=== PATIENT | male | born 1990 | race Caucasian/White ===

== ENCOUNTER 2020-08-05 16:37 | Outpatient (REF) | payer OTHER, SELFPAY ==
[2020-08-05 18:45] LABS: Amphetamine Screen Urine POSITIVE (Not Detect); Barbiturates, Urine Not Detected (Not Detect); Benzodiazepines Screen Urine POSITIVE (Not Detect); Cannabinoid Screen Urine POSITIVE (Not Detect); Cocaine Screen Urine Not Detected (Not Detect); Opiate Screen Urine Not Detected (Not Detect); Phencyclidine Screen Urine Not Detected (Not Detect)
== END 2020-08-05 16:38 | disposition home or self-care (01) ==
LOC: HO.LAB 16:37
PROVIDERS: Visit Provider Clinical Nurse Specialist Psychiatric/Mental Health, Adult
DX: F11.20 Opioid dependence, uncomplicated (principal)
CPT/HCPCS: 80307

== ENCOUNTER 2020-08-17 08:15 | Outpatient (RCR) | payer OTHER, SELFPAY ==
--- NOTE | 2020-07-26 11:00 | PC.NURSE ---
Patient showed up to the morning meeting at [id number] however did not show up to the first group at 0930. Called patient via telephone however patient did not answer and was unable to leave a voice mail as mail box was not set up. Called patient's emergency contact (Patient's mother) Valery and left her a voice mail message to call me back.
--- NOTE | 2020-07-26 11:52 | PC.NURSE ---
Spoke to patient's mother Valery who gave me another number to call to get in touch with her son. Stated she would call him and call me back. Yoko called me back and stated she spoke to her son who was having problems with the wireless connection and could not get into group as a result. They have been having connectivity issues d/t where they live. She stated she would work with her son and try and fix the issue and her son is planning on starting tomorrow.
--- NOTE | 2020-07-27 11:03 | PC.NURSE ---
Called pt because he attended approximately 3 minutes of the first psychotherapy group and left. Could not leave a voicemail due to voicemail not being set up yet.
--- NOTE | 2020-07-27 11:50 | PC.NURSE ---
Patients mother called this morning at 0915 after the morning meeting stating that her son told her that he was told that someone will call him before the first group. I informed patients mother that her son should have received an email for the 0930 group and he is to click on the link to get into the group and that staff would let him in the group at 0930. Patient was able to attend the morning meeting without incident. Patient called as well and asked how to get in the group. I explained to him how to get on. Staff stated that patient showed up to group, attended for about 3 minutes then left. Angela Schmidt will call the patient to f/u.
--- NOTE | 2020-07-27 13:02 | PC.NURSE ---
Spoke with pt to discuss his reaction to groups. He reported he struggles to stay in group but could not elaborate on any details as to why. He reported he wanted to try again and was forwarded to Linda Urbano to schedule a reassessment. Pt's mother called to report that pt had been experiencing paranoia from the groups. Recommended another crisis assessment if he was unable to function and running out of medication. Recommended calling his PCP for medication refills. Reminded her that he needs to be present during the follow up phone calls to other providers due to confidentiality concerns.
--- NOTE | 2020-07-29 10:27 | PC.NURSE ---
Pt attended his reassessment this morning at 10am. Pt and TW discussed pt's struggles with PHP and the need for a reassessment. Pt reported that the groups were scary to him- that he was not used to doing this type of treatment. Pt stated that after talking with the line maintenance supervisor, he understands that it is in his best interest to attend the groups. Pt was informed again of the structure of the day and informed that he can pin the clinician so that is all he can see should he become anxious looking at other group members. Completed PHQ-9. Reviewed assessment. Pt indicates no changes. Pt denies SI/HI. Denies any new substance use. Reviewed releases. Pt indicated they remain accurate. Reviewed and completed the patient contract and rules of telehealth. Pt verbally consented to both. Diagnosis verification remains the same. Reviewed safety plan- no changes. Pt was resent email with name and direct extension for his assigned clinician, the main number to the program, and the numbers for both [facility] and [facility] crisis. The coping skill handout packet was also attached. Pt requested a new packet of information be mailed to him as he cannot find the one that was sent previously.
[2020-08-01 13:57] VITALS: BMI 37.0
--- NOTE | 2020-08-01 14:13 | PC.ADMIT ---
Patient is a 30 year old male who started the PHP program today. He initally was going to start the program last week however was having some issues with wifi and also was feeling quite anxious about the program and felt he was being started at by others when he attended the morning meeting. Patient was referred by [facility] where he was admitted d/t mood instability. See Intergrated Assessement for further details.Patient is alert and oriented x4 . Calm and cooperative. Feels he is going to get alot out of the program. Denied SI, AH, VH, or HI. Stated he ran out of his medications as he had a limited supply from the hospital. Noelle Barron APRN is aware. Patient gave verbal permission to email him a copy of his safety plan and information on Substance use support groups. Patient strongly encouraged to attend online groups in addition to PHP for more support. Assessment complted via telephone d/t pandemic.
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
--- NOTE | 2020-08-04 12:00 | PC.NURSE ---
Addendum entered by Cindy Rizzo RN 08/04/20 12:25: Clarification: Per [facility] note it was initially thought that patient had a substance induced psychosis however it was determined that this was less likely. Original Note: Matt called to say that he will be completing a AGUILAR at [facility] today and his father will be bringing him. He also stated he had a psychiatrist appointment yesterday and was prescribed Xanax 2 mg BID, Adderall 30 mg TID, Abilify 2 mg BID, and Gabapentin 800mg TID. He stated his mother asked his psychiatrist not to prescribe these medications. He also stated that his mother is giving his medications to him so he will not abuse them as he is currently living with his mother. Stated he was abusing them a few months ago but now is taking them as prescribed. Discussed with patient that PHP prescriber is not recommending patient take the above mentioned medications and patient was not discharged on these medications on inpatient unit. Discusssed with patient his history of substance induced psychosis and felony charges. Patient is making a choice to continue the above medications. Stated he feels so much better now that he can focus. The team is aware.
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
--- NOTE | 2020-08-10 15:30 | PC.NURSE ---
I called the [facility] in [place] to set up an appointment for the client with an individual therapist. I left a message with the agile test lead Tisha to call explaining I wanted to set up appointment .
--- NOTE | 2020-08-11 11:00 | PC.NURSE ---
Called Tisha at the [facility] to give information for referral for a therapist for [place]. She will call me back with am appointment time.
--- NOTE | 2020-08-11 12:09 | PM.EVENT ---
Event Note Event Note: patient's chart and recent hospitalization reviewed. Call placed to patient's psychiatrist to coordinate care particularly given recent psychotic episode and patient being back on stimulants. Zyprexa had been discontinued inpatient on low-dose Abilify. Unclear if patient had chronic psychotic disorder or reason for recent psychotic episode this is for 08/08/2020
--- NOTE | 2020-08-11 12:39 | P.PNPSP_ITS ---
Subjective Subjective Date of Service: 08/11/20 Reason For Visit: depression Interim History: Pt relates hx of paranoid psychotic hx denies taking any stimulants and being confused ? felt posessed had run out of xanax prior to this event feeling normal now no paranoia or possesion now denies snorting adderall Mental Status Exam Mental Status Exam Patient Orientation: Person, Place and Time Level of Consciousness: Awake Patient Behavior: Appropriate, Talkative and Anxious Mood Description: Calm Affect Description: Appropriate and Nervous Speech Pattern: Clear Memory Description: Intact Hallucinations: None Delusions: Not Present Thought Process: Rumination Thought Content: positive for Circumstantial Judgement and Insight: superficially agrees with need for sobriety states he understands need for sobriety need to take his medication as prescribed Diagnostics Vital Signs (24Hr): Body Mass Index 37.0 Assessment & Plan Assessment & Plan (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: Status: Acute Code(s): F19.959 - Other psychoactive substance use, unspecified with psychoactive substance-induced psychotic disorder, unspecified (2) Opiate abuse, episodic: Status: Inactive Code(s): F11.10 - Opioid abuse, uncomplicated (3) Major depression, recurrent, chronic: Status: Acute Code(s): F33.9 - Major depressive disorder, recurrent, unspecified (4) PTSD (post-traumatic stress disorder): Status: Acute Code(s): F43.10 - Post-traumatic stress disorder, unspecified Assessment and Plan: patient's case reviewed with his outpatient psychiatric provider who had been unaware of his recent hospitalization. Patient peers to most likely have suffered a with withdrawal delirium perhaps over use of stimulants and may have had a withdrawal delirium from running out of alprazolam. Above concerns lalito holland with Dr. Singh and patient the patient remains on stimulants would monitor for psychotic symptoms disorganization. Patient denies any hallucinations or current delusional material he is alert and oriented trying to process what happened to him in a confusional state he is on methadone if he relapses may benefit from a CSS he does have a pending court case Certification I certify that partial hospital treatment is medically necessary due to the symptoms and problems resulting from the patient's mental illness and the failure to treat the patient at the partial hospital level of care would likely result in the patient requiring inpatient psychiatric care which could not be prevented at a less intensive level of care. Greater than 50% of the session was spent on counseling and/or coordination of care Discharge Plan Discharge Attending provider: Richard Gunderson Medications: New miconazole nitrate 2 % cream 1 applic topical BID Qty: 30 RF: 0 olanzapine 5 mg tablet 5 mg PO .Q 6 HOURS PRN (Reason: agitation) Qty: 30 RF: 0 Continued olanzapine 5 mg Tablet,Disintegrating 5 mg PO DAILY Qty: 14 RF: 0 trazodone 50 mg Tablet 50 mg PO BEDTIME PRN (Reason: Insomnia) Qty: 14 RF: 0 olanzapine 10 mg Tablet,Disintegrating 10 mg PO BEDTIME Qty: 14 RF: 0 Discontinued olanzapine 5 mg Tablet,Disintegrating 5 mg PO Q6H PRN (Reason: Agitation) RF: 0 No Action methadone 10 mg/5 mL Solution 50 mg PO DAILY RF: 0 amlodipine 5 mg Tablet 10 mg PO DAILY RF: 0 nicotine (polacrilex) 4 mg Gum 4 mg BUCCAL Q2H RF: 0 hydrochlorothiazide 12.5 mg Capsule 12.5 mg PO DAILY RF: 0 hydroxyzine HCl 50 mg Tablet 50 mg PO Q4H PRN (Reason: Anxiety) RF: 0 dextroamphetamine-amphetamine 30 mg Tablet 30 mg PO TID RF: 0 gabapentin 800 mg Tablet 800 mg PO TID RF: 0 alprazolam 2 mg Tablet 2 mg PO BID RF: 0
--- NOTE | 2020-08-12 07:21 | PC.NURSE ---
An appointment was made for the client with Willy DURÁN at the [facility] individual therapy. The appoint time is 07/23/2020 at 1045 am. He will call the client then.
--- NOTE | 2020-08-12 09:49 | PC.NURSE ---
I called the client to inquire about his absence. There was no answer and I left a message for him to call.
--- NOTE | 2020-08-15 14:35 | PC.NURSE ---
I spoke with client about ending 08/18 and if he would consider an [facility] referral. He will talk to his counselor at [facility] about substance IOP and let me know if he wants a referral.
--- NOTE | 2020-08-15 23:10 | HO.PHPPROGNO ---
Subjective Subjective Date of Service: 08/15/20 Reason For Visit: depression Interim History: PATIENT STATES HE REMAINS STABLE AND SOBER. HAS NOT HAD ANY RELAPSE WITH PARANOIA OR PSYCHOSIS. HE STATES HIS MOOD REMAINS STABLE HE CONTINUES ON ZYPREXA AND HE HAS ALSO BEEN PRESCRIBED ALPRAZOLAM AND ADDERALL BY HIS OUTPATIENT PSYCHIATRIST. HE HAS BEEN CAUTIONED REGARDING USE OF ADDERALL WITH RECENT PSYCHOSIS. HIS OUTPATIENT PSYCHIATRIST IS AWARE PATIENT STABLE NO USE OF ILLICIT SUBSTANCES HE IS CONCERNED ABOUT HIS UPCOMING COURT CASE Medication Compliance: Yes Side effects from medications: No Attending Groups: Yes Mental Status Exam Mental Status Exam Narrative: PATIENT AGREEABLE TO TELE HEALTH APPOINTMENT GENERALLY FEELING STABLE COMPLAINS OF SOME DEGREE OF ANXIETY DENIES SIGNIFICANT MOOD LABILITY HE IS ALERT ORIENTED HE HAS BEEN HAVING IMAGES THAT ARE COMING TO HIM WHEN HE WAS SOME ALTERED STATE AND HE IS TRYING TO PROCESS THE EVENTS WHEN HE APPEARS TO HAVE BEEN DELIRIOUS Patient Orientation: Person, Place and Time Level of Consciousness: Awake Patient Behavior: Appropriate, Talkative and Anxious Mood Description: Calm, Anxious and Apprehensive Affect Description: Appropriate and Nervous Speech Pattern: Clear Memory Description: Intact Hallucinations: None Delusions: Not Present Thought Process: Rumination Thought Content: positive for [place] and positive for Circumstantial Judgement and Insight: superficially agrees with need for sobriety states he understands need for sobriety need to take his medication as prescribed Diagnostics Vital Signs (24Hr): Body Mass Index 37.0 Assessment & Plan Assessment & Plan (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 HE IS FEELING MORE STABLE ON OLANZAPINE HAVE EXPRESSED MY CONCERN REGARDING CONTINUED USE OF ADDERALL AT THE TO MONITOR FOR MOOD INSTABILITY OR PSYCHOSIS. PATIENT FUTURE ORIENTED STABLE DOSED NOT APPEAR PSYCHOTIC OR OVERLY DEPRESSED. HE STATES HE IS COMMITTED TO LIVING IN A BETTER WAY AT STATES HE IS COMMITTED TO SOBRIETY AND USING MEDS PRESCRIBED Patient educated on: diagnosis, medication risk/benefits and substance abuse Informed Consent: further education needed Reason for contiued partial hosp. stay Substantial Risk for: rapid decompensation Certification I certify that partial hospital treatment is medically necessary due to the symptoms and problems resulting from the patient's mental illness and the failure to treat the patient at the partial hospital level of care would likely result in the patient requiring inpatient psychiatric care which could not be prevented at a less intensive level of care. Greater than 50% of the session was spent on counseling and/or coordination of care Discharge Plan Discharge Attending provider: Richard Gunderson Medications: New miconazole nitrate 2 % cream 1 applic topical BID Qty: 30 RF: 0 olanzapine 5 mg tablet 5 mg PO .Q 6 HOURS PRN (Reason: agitation) Qty: 30 RF: 0 Continued olanzapine 5 mg Tablet,Disintegrating 5 mg PO DAILY Qty: 14 RF: 0 trazodone 50 mg Tablet 50 mg PO BEDTIME PRN (Reason: Insomnia) Qty: 14 RF: 0 olanzapine 10 mg Tablet,Disintegrating 10 mg PO BEDTIME Qty: 14 RF: 0 Discontinued olanzapine 5 mg Tablet,Disintegrating 5 mg PO Q6H PRN (Reason: Agitation) RF: 0 No Action methadone 10 mg/5 mL Solution 50 mg PO DAILY RF: 0 amlodipine 5 mg Tablet 10 mg PO DAILY RF: 0 nicotine (polacrilex) 4 mg Gum 4 mg BUCCAL Q2H RF: 0 hydrochlorothiazide 12.5 mg Capsule 12.5 mg PO DAILY RF: 0 hydroxyzine HCl 50 mg Tablet 50 mg PO Q4H PRN (Reason: Anxiety) RF: 0 dextroamphetamine-amphetamine 30 mg Tablet 30 mg PO TID RF: 0 gabapentin 800 mg Tablet 800 mg PO TID RF: 0 alprazolam 2 mg Tablet 2 mg PO BID RF: 0
--- NOTE | 2020-08-16 09:23 | PC.NURSE ---
I called the client to inquire about his absence in the community meeting. He states that he is driving and just reached an area where his cell service works. He states that he will be in group by 945. I reminded him that he needs to be there by 930.
--- NOTE | 2020-08-18 08:16 | PC.NURSE ---
An e mail was sent to client reviewing his discharge plans
== END 2020-08-17 23:55 | disposition home or self-care (01) ==
LOC: HO.PHPA 08:15
PROVIDERS: Visit Provider Psychiatry & Neurology Psychiatry
DX: F33.9 Major depressive disorder, recurrent, unspecified (principal); F43.10 Post-traumatic stress disorder, unspecified; F11.20 Opioid dependence, uncomplicated; F19.959 Other psychoactive substance use, unspecified with psychoactive substance-induced psychotic disorder, unspecified; Z79.899 Other long term (current) drug therapy
CPT/HCPCS: 90792; 90853; 99213; 99214